=== PATIENT | male | born 1940 | race Caucasian/White ===

== ENCOUNTER 2023-01-12 23:16 | Emergency (ER) | payer MEDICARE, MEDICAID, SELFPAY ==
[2023-01-12 23:36] VITALS: BP 90/60; PULSE 63; RESP 19; O2SAT 94; BMI 34.4
[2023-01-12 23:47] VITALS: BP 86/66; PULSE 65; RESP 16; O2SAT 96
--- NOTE | 2023-01-12 23:49 | ECG_ITS ---
[facility] Test Date: 2023-01-12 Pat Name: Earnestine Nuno Department: Room: Gender: Male Senior Supplier Quality Engineer: : [id number] Requested By: Edwar Jones Order Number: [id number] Cabrera MD: Shashi Palomino M.D. Measurements Intervals [place] Rate: 60 P: 151 ME: 157 QRS: 232 QRSD: 98 T: 103 QT: 409 QTc: 411 Interpretive Statements SINUS RHYTHM ARM LEADS REVERSED [INVERTED P AND QRS IN I] No previous ECG available for comparison Electronically Signed On 01-13-2023 11:15:06 CDT by Shashi Palomino M.D. [id number] f
[2023-01-12] MEDS: sodium chloride 0.9% 1,000 ML 999 ML IV (23:50)
--- NOTE | 2023-01-12 23:52 | XRR_ITS ---
PROCEDURE INFORMATION: Exam: XR Chest Exam date and time: 01/12/2023 11:57 PM Age: 82 years old Clinical indication: Shortness of breath; Patient HX: EMS arrival from [facility] for hypoglycemia. Patient very lethargic and non verbal. Hypotensive on monitor. Audible rales with hypoxia. ; Additional info: Rhonchi, hypoxia TECHNIQUE: Imaging protocol: Radiologic exam of the chest. Views: 1 view. COMPARISON: No relevant prior studies available. FINDINGS: Lungs: Bibasilar atelectasis versus infiltrate. Pleural spaces: Unremarkable. No pleural effusion. No pneumothorax. Heart/Mediastinum: Cardiomegaly. Bones/joints: Unremarkable. XR/XR chest 1V portable [id number] IMPRESSION: 1. Bibasilar atelectasis versus infiltrate. 2. Cardiomegaly.
--- NOTE | 2023-01-12 23:53 | CTR_ITS ---
PROCEDURE INFORMATION: Exam: CT Head Without Contrast Exam date and time: 01/13/2023 12:07 AM Age: 82 years old Clinical indication: Altered mental status/memory loss; Patient HX: EMS arrival from [facility] for hypoglycemia. Patient very lethargic and non verbal. Hypotensive on monitor. ; Additional info: AMS TECHNIQUE: Imaging protocol: Computed tomography of the head without contrast. Radiation optimization: All CT scans at this facility use at least one of these dose optimization techniques: automated exposure control; mA and/or kV adjustment per patient size (includes targeted exams where dose is matched to clinical indication); or iterative reconstruction. REPORTING DATA: Count of CT and Cardiac NM exams in prior 12 months: This patient has received 0 known CTs and 0 known cardiac nuclear medicine studies in the 12 months prior to the current study. COMPARISON: No relevant prior studies available. RADIATION DOSE METRICS: Total DLP (mGy-cm): 1183.58 FINDINGS: Brain: Large amount diffuse white matter disease likely reflecting chronic microvascular ischemic changes. Cerebral ventricles: No ventriculomegaly. Paranasal sinuses: Paranasal sinus opacifications. Mastoid air cells: Visualized mastoid air cells are well aerated. Bones/joints: Unremarkable. No acute fracture. Soft tissues: Unremarkable. CT/CT head wo con* [id number] IMPRESSION: Negative for intracranial hemorrhage mass effect.
--- NOTE | 2023-01-12 23:54 | ED_ITS ---
Documented by User: ROSALIE Guevara 01/13/23 13:31 HPI - Recheck/Abnormal Lab/Rx General: Chief Complaint: Recheck/Abnormal Lab/Rx Stated Complaint: HYPOGLYCEMIA Time Seen by Provider: 01/12/23 23:50 History of Present Illness: 82-year-old male patient brought in by EMS for concerns of altered mental status. Patient was recognized to have a low blood sugar at the [facility]. Blood glucose was 75 EMS was dispatched and noted that blood glucose was 57 and he was given D10 in route to the ER. This brought patient's blood glucose up to 215 and EMS reported some increased response from patient. Patient does respond to verbal stimuli but is somnolent. Patient has a history of diabetes, dementia, dysphagia, hyperlipidemia, GERD, obesity. Review of Systems General: Reports: 10 or more systems reviewed and unremarkable except in HPI and below Const: Reports: fatigue Card: Denies: chest pain Resp: Denies: dyspnea GI: Denies: vomiting Neuro: Reports: weakness in extremities Physical Exam Const: COMMON NORMALS: alert HENMT: COMMON NORMALS: normocephalic HEAD & SCALP: normocephalic Neck/C-Spine: COMMON NORMALS: full ROM Resp: COMMON NORMALS: normal respiratory effort AUSCULTATION: rhonchi and diminished lung sounds Cardio: COMMON NORMALS: regular rate RATE: regular rate GI: COMMON NORMALS: Soft to palpation and non-tender PALPATION: Yes Soft to palpation Extremity: COMMON NORMALS: no pedal edema Neuro: SENSORIUM/ORIENTATION: Yes alert Skin: COMMON NORMALS: turgor normal GENERAL SKIN EXAM: turgor normal Course Vital Signs: Vital signs: Vital Signs Pulse Rate 90 01/13/23 12:39 Respiratory Rate 18 01/13/23 12:39 Blood Pressure 98/62 01/13/23 12:39 Pulse Oximetry 94 01/13/23 12:39 Oxygen Delivery Me thod Room Air 01/13/23 06:23 MDM - Recheck/Abnormal Lab/Rx Medical Decision Making 82-year-old male patient was brought in by EMS for concerns of hypoglycemia and altered mental status. Patient was given dextrose, D10 per EMS to bring up blood glucose to above 200. Patient was reported to be more attentive after administration. On exam patient seems somnolent. Patient does answer questions but does not open eyes. Patient has rhonchorous lung sounds with diminished air movement in the bases. Abdomen is rotund. No edema is noted in the extremities. Differential diagnosis includes sepsis, hypoglycemia, aspirated pneumonia, stroke syndrome, ACS. Lab Data 01/12/23 23:30 01/12/23 23:30 Radiology Impressions Chest X-Ray 01/12/23 23:52 IMPRESSION: 1. Bibasilar atelectasis versus infiltrate. 2. Cardiomegaly. Head CT 01/12/23 23:53 IMPRESSION: Negative for intracranial hemorrhage mass effect. Abdomen/Pelvis CT 01/13/23 02:14 IMPRESSION: 1. No hydronephrosis or calculus. 2. Mildly distended urinary bladder with no obvious bladder wall thickening. 3. Questionable trace layering density in the posterior bladder, possibly debris and/or clot. Can not exclude volume averaging artifact, as the finding is very subtle. 4. Normal prostate gland. 5. Rounded consolidation in the posterior right lower lobe, seen on the superior most image, measuring at least 4 cm. Considerations include pneumonia, rounded atelectasis, and neoplasm. 6. Cholelithiasis. No evidence of acute cholecystitis or biliary dilatation. 7. Very minor colonic diverticulosis without evidence of diverticulitis. 8. Small sliding hiatal hernia. 9. Small bilateral fat containing inguinal hernias. 10. Age indeterminate mild wedge compression fracture of T11. Suspect that this is chronic given the bridging osteophytes, but no prior studies are available for comparison. ADDENDUM: 01/13/23 0322 ADDENDUM: As per Fleischner Society guidelines for follow-up and management of pulmonary nodules greater than 8 mm: Recommend initial follow-up chest CT at 3 months. Consider contrast enhanced chest CT, PET scan and/or biopsy as clinically warranted. References: Bal H, et al. Guidelines for Management of Incidental Pulmonary Nodules Detected on CT Images: From the Fleischner Society 2017. Radiology. 2017;284(1):228-243. Laboratory Results WBC 5.96 10^3/uL (3.29-11.43) 01/12/23 23:30 RBC 6.12 10^6/uL (3.85-5.65) H 01/12/23 23:30 Hgb 16.00 g/dL (11.27-16.99) 01/12/23 23:30 Hct 50.6 % (37-53) 01/12/23 23: MCV 82.7 fl (82-101) 01/12/23 23: MCH 26.1 pg (27-33) L 01/12/23 23: MCHC 31.6 g/dL (30-55) 01/12/23 23: RDW 17.8 % (12.1-15.1) H 01/12/23 23: Plt Count 217 10^3/cmm (157-399) 01/12/23 23: MPV 9.5 fL (7.4-10.4) 01/12/23 23: Neut % (Auto) 57.1 % 01/12/23 23: Lymph % (Auto) 30.0 % 01/12/23 23: Forrest % (Auto) 7.9 % 01/12/23: Eos % (Auto) 4.0 % 01/12/23 23: Baso % (Auto) 0.5 % 01/12/23: Neut # (Auto) 3.40 10^3/uL (1.8-7.7) 01/12/23 23: Lymph # (Auto) 1.8 10^3/uL (0.8-4.8) 01/12/23 23: Forrest # (Auto) 0.5 10^3/uL (0.2-0.9) 01/12/23 23:30 Eos # (Auto) 0.2 10^3/uL (0.0-0.8) 01/12/23 23: Baso # (Auto) 0.0 10^3/uL (0.0-0.1) 01/12/23 23: Nucleated RBC % (auto) 0 % 01/12/23: Nucleated RBCs # 0.0 /100WBC 01/12/23 23: ESR 29 mm/hr (0-10) H 01/12/23 23:30 Sodium 143 mmol/L (136-145) 01/12/23 23:30 Potassium 3.8 mmol/L (3.5-5.1) 01/12/23 23: Chloride 108 mmol/L (98-107) H 01/12/23 23:30 Carbon Dioxide 25 mmol/L (22-29) 01/12/23 23:30 Anion Gap 13.8 (5-19) 01/12/23 23:30 BUN 22 mg/dL (8-23) 01/12/23 23:30 Creatinine 1.5 mg/dL (0.7-1.2) H 01/12/23 23:30 GFR Calculation Not Reportable 01/12/23 23:30 Glucose 49 mg/dL (65-115) L 01/12/23 23:30 POC Glucose 58 mg/dL (70-110) L 01/13/23 12:10 Calculated Osmolality 297 mOsm/kg (285-295) H 01/12/23 23:30 Lactic Acid 1.4 mmol/L (0.5-2.2) 01/13/23 00:36 Calcium 9.1 mg/dL (8.5-10.5) 01/12/23 23:30 Total Bilirubin 0.4 mg/dL (0.15-1.2) 01/12/23 23:30 AST 20 U/L (0-40) 01/12/23 23:30 ALT 7 U/L (0-41) 01/12/23 23:30 Alkaline Phosphatase 31 U/L (40-130) L 01/12/23 23:30 Troponin T Baseline 21 ng/L (0-15) H 01/13/23 00:00 Troponin T 120 Minute 17.57 ng/L (0-15) H 01/13/23 01:54 Delta Troponin T -3.43 ABS# (0-10) L 01/13/23 01:54 C-Reactive Protein 9.3 mg/L (0.0-4.9) H 01/12/23 23:30 Total Protein 6.8 g/dL (6.6-8.7) 01/12/23 23:30 Albumin 3.5 g/dL (3.5-5.2) 01/12/23 23:30 Globulin 3.3 g/dL (1.3-4.6) 01/12/23 23:30 Urine Color Yellow (Yellow) 01/13/23 00:42 Urine Appearance Cloudy (CLEAR) A 01/13/23 00:42 Urine pH 5 (5-7) 01/13/23 00:42 Ur Specific [place] 1.015 (1.005-1.030) 01/13/23 00: Urine Protein Trace (Negative) 01/13/23: Urine Glucose (UA) 1+ (Normal) H 01/13/23 00: Urine Ketones Negative (Negative) 01/13/23 00: Urine Blood 2+ (Negative) H 01/13/23 00: Urine Nitrate Negative (Negative) 01/13/23: Urine Bilirubin Neg (Negative) 01/13/23: Urine Urobilinogen Neg mg/dL (Negative) 01/13/23 00: Ur Leukocyte Esterase 2+ (Negative) H 01/13/23 00: Urine RBC Too numerous to cnt /hpf (0-2) H 01/13/23: Urine WBC Too numerous to cnt /hpf (0-5) H 01/13/23 00: Ur Squamous Epith Cells Rare /hpf (0-5) 01/13/23 00: Amorphous Sediment Not Reportable 01/13/23 00: Urine Bacteria Trace /hpf (NONE) 01/13/23 00:42 Nasal Influ A H1 2009 PCR Not detected (NOT DETECT) 01/13/23 00:02 Adenovirus (PCR) Not detected (NOT DETECT) 01/13/23 00:02 C. pneumoniae DNA (PCR) Not detected (NOT DETECT) 01/13/23 00:02 Coronavirus 229E (PCR) Not detected (NOT DETECT) 01/13/23 00:02 Human Metapneumovir PCR Not detected (NOT DETECT) 01/13/23 00:02 Influenza A (H1) PCR Not detected (NOT DETECT) 01/13/23 00:02 Influenza A (H3) PCR Not detected (NOT DETECT) 01/13/23 00:02 Influenza Type A (PCR) Not detected (NOT DETECT) 01/13/23 00:02 Influenza Type B (PCR) Not detected (NOT DETECT) 01/13/23 00:02 M. pneumoniae (PCR) Not detected (NOT DETECT) 01/13/23 00:02 Parainfluenza 1 (PCR) Not detected (NOT DETECT) 01/13/23 00:02 Parainfluenza 2 (PCR) Not detected (NOT DETECT) 01/13/23 00:02 Parainfluenza 3 (PCR) Not detected (NOT DETECT) 01/13/23 00:02 Parainfluenza 4 (PCR) Not detected (NOT DETECT) 01/13/23 00:02 RSV Type A (PCR) Not detected (NOT DETECT) 01/13/23 00:02 RSV Type B (PCR) Not detected (NOT DETECT) 01/13/23 00:02 Entero/Rhino (PCR) Not detected (NOT DETECT) 01/13/23 00:02 SARS-CoV-2 (PCR) Not detected (NOT DETECT) 01/13/23 00:02 Discharge Plan Discharge Patient Disposition: Home Clinical Impression: Acute UTI, Hypoglycemia Condition: Stable Prescriptions: New cefdinir 300 mg capsule 300 mg PO BID Qty: 14 0RF Discharge Orders: Discharge ED (Routine); Ordered 01/13/23 Ordered By: Thomas Rockwell Patient Instructions: Hypoglycemia in a Person with Diabetes (ED), Urinary Tract Infection in Older Adults (ED) Activity Restrictions/Additional Instructions: Return for any problems. Monitor for fever. Watch blood sugars very closely. Coding Level of Care Code ED Engineering Faculty for Chg Fwd Documented by User: Thomas Rockwell DO 01/13/23 04:52 HPI - Recheck/Abnormal Lab/Rx General: Chief Complaint: Recheck/Abnormal Lab/Rx Stated Complaint: HYPOGLYCEMIA Time Seen by Provider: 01/12/23 23:50 Course Vital Signs: Vital signs: Vital Signs Pulse Rate 90 01/13/23 12:39 Respiratory Rate 18 01/13/23 12:39 Blood Pressure 98/62 01/13/23 12:39 Pulse Oximetry 94 01/13/23 12:39 Oxygen Delivery Me thod Room Air 01/13/23 06:23 MDM - Recheck/Abnormal Lab/Rx Medical Decision Making 82-year-old male patient was brought in by EMS for concerns of hypoglycemia and altered mental status. Patient was given dextrose, D10 per EMS to bring up blood glucose to above 200. Patient was reported to be more attentive after administration. On exam patient seems somnolent. Patient does answer questions but does not open eyes. Patient has rhonchorous lung sounds with diminished air movement in the bases. Abdomen is rotund. No edema is noted in the extremities. Differential diagnosis includes sepsis, hypoglycemia, aspirated pneumonia, stroke syndrome, ACS. Patient was originally seen by ROSALIE Romero. I agree with his history, evaluation, and initial treatment. The patient has a creatinine of 1.5. Blood sugar was 49 here on arrival, but increase appropriately with administration of more D10. He is eating now. Chest x-ray shows bibasilar atelectasis. Head CT is negative. The patient has a urinary tract infection with too many whites and reds to count. CT rules out hydronephrosis or calculus. There is a rounded consolidation in the posterior right lower lobe there is a possible pneumonia. He will be covered for both. Frequent sugar checks. As he is otherwise stable, he will be allowed discharge. Return for any worsening symptoms. Lab Data 01/12/23 23:30 01/12/23 23:30 Radiology Impressions Chest X-Ray 01/12/23 23:52 IMPRESSION: 1. Bibasilar atelectasis versus infiltrate. 2. Cardiomegaly. Head CT 01/12/23 23:53 IMPRESSION: Negative for intracranial hemorrhage mass effect. Abdomen/Pelvis CT 01/13/23 02:14 IMPRESSION: 1. No hydronephrosis or calculus. 2. Mildly distended urinary bladder with no obvious bladder wall thickening. 3. Questionable trace layering density in the posterior bladder, possibly debris and/or clot. Can not exclude volume averaging artifact, as the finding is very subtle. 4. Normal prostate gland. 5. Rounded consolidation in the posterior right lower lobe, seen on the superior most image, measuring at least 4 cm. Considerations include pneumonia, rounded atelectasis, and neoplasm. 6. Cholelithiasis. No evidence of acute cholecystitis or biliary dilatation. 7. Very minor colonic diverticulosis without evidence of diverticulitis. 8. Small sliding hiatal hernia. 9. Small bilateral fat containing inguinal hernias. 10. Age indeterminate mild wedge compression fracture of T11. Suspect that this is chronic given the bridging osteophytes, but no prior studies are available for comparison. ADDENDUM: 01/13/23 5702 ADDENDUM: As per Fleischner Society guidelines for follow-up and management of pulmonary nodules greater than 8 mm: Recommend initial follow-up chest CT at 3 months. Consider contrast enhanced chest CT, PET scan and/or biopsy as clinically warranted. References: Bal Miller et al. Guidelines for Management of Incidental Pulmonary Nodules Detected on CT Images: From the Fleischner Society 2017. Radiology. 2017;284(1):228-243. Laboratory Results WBC 5.96 10^3/uL (3.29-11.43) 01/12/23 23:30 RBC 6.12 10^6/uL (3.85-5.65) H 01/12/23 23:30 Hgb 16.00 g/dL (11.27-16.99) 01/12/23 23: Hct 50.6 % (37-53) 01/12/23 23:30 MCV 82.7 fl (82-101) 01/12/23 23:30 MCH 26.1 pg (27-33) L 01/12/23 23: MCHC 31.6 g/dL (30-55) 01/12/23 23:30 RDW 17.8 % (12.1-15.1) H 01/12/23 23:30 Plt Count 217 10^3/cmm (157-399) 01/12/23 23:30 MPV 9.5 fL (7.4-10.4) 01/12/23 23:30 Neut % (Auto) 57.1 % 01/12/23 23:30 Lymph % (Auto) 30.0 % 01/12/23 23:30 Forrest % (Auto) 7.9 % 01/12/23 23:30 Eos % (Auto) 4.0 % 01/12/23 23:30 Baso % (Auto) 0.5 % 01/12/23 23:30 Neut # (Auto) 3.40 10^3/uL (1.8-7.7) 01/12/23 23:30 Lymph # (Auto) 1.8 10^3/uL (0.8-4.8) 01/12/23 23:30 Forrest # (Auto) 0.5 10^3/uL (0.2-0.9) 01/12/23 23:30 Eos # (Auto) 0.2 10^3/uL (0.0-0.8) 01/12/23 23:30 Baso # (Auto) 0.0 10^3/uL (0.0-0.1) 01/12/23 23:30 Nucleated RBC % (auto) 0 % 01/12/23 23:30 Nucleated RBCs # 0.0 /100WBC 01/12/23 23:30 ESR 29 mm/hr (0-10) H 01/12/23 23:30 Sodium 143 mmol/L (136-145) 01/12/23 23:30 Potassium 3.8 mmol/L (3.5-5.1) 01/12/23 23:30 Chloride 108 mmol/L (98-107) H 01/12/23 23:30 Carbon Dioxide 25 mmol/L (22-29) 01/12/23 23:30 Anion Gap 13.8 (5-19) 01/12/23 23:30 BUN 22 mg/dL (8-23) 01/12/23 23:30 Creatinine 1.5 mg/dL (0.7-1.2) H 01/12/23 23:30 GFR Calculation Not Reportable 01/12/23 23:30 Glucose 49 mg/dL (65-115) L 01/12/23 23:30 POC Glucose 58 mg/dL (70-110) L 01/13/23 12:10 Calculated Osmolality 297 mOsm/kg (285-295) H 01/12/23 23:30 Lactic Acid 1.4 mmol/L (0.5-2.2) 01/13/23 00:36 Calcium 9.1 mg/dL (8.5-10.5) 01/12/23 23:30 Total Bilirubin 0.4 mg/dL (0.15-1.2) 01/12/23 23:30 AST 20 U/L (0-40) 01/12/23 23:30 ALT 7 U/L (0-41) 01/12/23 23:30 Alkaline Phosphatase 31 U/L (40-130) L 01/12/23 23:30 Troponin T Baseline 21 ng/L (0-15) H 01/13/23 00:00 Troponin T 120 Minute 17.57 ng/L (0-15) H 01/13/23 01:54 Delta Troponin T -3.43 ABS# (0-10) L 01/13/23 01:54 C-Reactive Protein 9.3 mg/L (0.0-4.9) H 01/12/23 23:30 Total Protein 6.8 g/dL (6.6-8.7) 01/12/23 23:30 Albumin 3.5 g/dL (3.5-5.2) 01/12/23 23: Globulin 3.3 g/dL (1.3-4.6) 01/12/23 23:30 Urine Color Yellow (Yellow) 01/13/23 00:42 Urine Appearance Cloudy (CLEAR) A 01/13/23 00:42 Urine pH 5 (5-7) 01/13/23 00:42 Ur Specific [place] 1.015 (1.005-1.030) 01/13/23 00:42 Urine Protein Trace (Negative) 01/13/23 00:42 Urine Glucose (UA) 1+ (Normal) H 01/13/23 00: Urine Ketones Negative (Negative) 01/13/23 00: Urine Blood 2+ (Negative) H 01/13/23 00:42 Urine Nitrate Negative (Negative) 01/13/23 00:42 Urine Bilirubin Neg (Negative) 01/13/23 00:42 Urine Urobilinogen Neg mg/dL (Negative) 01/13/23 00:42 Ur Leukocyte Esterase 2+ (Negative) H 01/13/23 00:42 Urine RBC Too numerous to cnt /hpf (0-2) H 01/13/23 00:42 Urine WBC Too numerous to cnt /hpf (0-5) H 01/13/23 00:42 Ur Squamous Epith Cells Rare /hpf (0-5) 01/13/23 00:42 Amorphous Sediment Not Reportable 01/13/23 00:42 Urine Bacteria Trace /hpf (NONE) 01/13/23 00:42 Nasal Influ A H1 2009 PCR Not detected (NOT DETECT) 01/13/23 00:02 Adenovirus (PCR) Not detected (NOT DETECT) 01/13/23 00: C. pneumoniae DNA (PCR) Not detected (NOT DETECT) 01/13/23 00: Coronavirus 229E (PCR) Not detected (NOT DETECT) 01/13/23 00: Human Metapneumovir PCR Not detected (NOT DETECT) 01/13/23 00:02 Influenza A (H1) PCR Not detected (NOT DETECT) 01/13/23 00:02 Influenza A (H3) PCR Not detected (NOT DETECT) 01/13/23 00:02 Influenza Type A (PCR) Not detected (NOT DETECT) 01/13/23 00:02 Influenza Type B (PCR) Not detected (NOT DETECT) 01/13/23 00:02 M. pneumoniae (PCR) Not detected (NOT DETECT) 01/13/23 00:02 Parainfluenza 1 (PCR) Not detected (NOT DETECT) 01/13/23 00:02 Parainfluenza 2 (PCR) Not detected (NOT DETECT) 01/13/23 00:02 Parainfluenza 3 (PCR) Not detected (NOT DETECT) 01/13/23 00:02 Parainfluenza 4 (PCR) Not detected (NOT DETECT) 01/13/23 00:02 RSV Type A (PCR) Not detected (NOT DETECT) 01/13/23 00:02 RSV Type B (PCR) Not detected (NOT DETECT) 01/13/23 00:02 Entero/Rhino (PCR) Not detected (NOT DETECT) 01/13/23 00:02 SARS-CoV-2 (PCR) Not detected (NOT DETECT) 01/13/23 00:02 All radiology interpretation(s) finalized by discharge Discharge Plan Discharge Patient Disposition: Home Clinical Impression: Acute UTI, Hypoglycemia Condition: Stable Prescriptions: New cefdinir 300 mg capsule 300 mg PO BID Qty: 14 0RF Discharge Orders: Discharge ED (Routine); Ordered 01/13/23 Ordered By: Thomas Rockwell Patient Instructions: Hypoglycemia in a Person with Diabetes (ED), Urinary Tract Infection in Older Adults (ED) Activity Restrictions/Additional Instructions: Return for any problems. Monitor for fever. Watch blood sugars very closely. Coding Level of Care Code ED Engineering Faculty for Marva Boo
[2023-01-12 23:58] LABS: Basophils % 0.5 %; Eosinophils # 0.2 10^3/uL (0.0-0.8); Hematocrit 50.6 % (37-53); Lymphocytes # 1.8 10^3/uL (0.8-4.8); Mean Corpuscular HGB Conc 31.6 g/dL (30-55); Mean Corpuscular Hemoglobin 26.1 pg (27-33); Mean Corpuscular Volume 82.7 fl (82-101); Mean Platelet Volume 9.5 fL (7.4-10.4); Monocytes # 0.5 10^3/uL (0.2-0.9); Monocytes % 7.9 %; Neutrophils % 57.1 %; Nucleated Red Blood Cells % 0 %; Platelet Count 217 10^3/cmm (157-399); Red Blood Count 6.12 10^6/uL (3.85-5.65); Red Cell Distribution Width 17.8 % (12.1-15.1); White Blood Count 5.96 10^3/uL (3.29-11.43)
[2023-01-13] VITALS (13 sets, daily range): BP systolic 98–140; BP diastolic 53–85; PULSE 61–90; RESP 18–22; O2SAT 93–97
[2023-01-13 00:03] LABS: Glucose Point of Care 108 mg/dL (70-110)
[2023-01-13 00:10] LABS: Erythrocyte Sedimentation Rate 29 mm/hr (0-10)
[2023-01-13 00:25] LABS: Troponin(5th) Baseline 21 ng/L (0-15)
[2023-01-13 00:27] LABS: C Reactive Protein 9.3 mg/L (0.0-4.9)
[2023-01-13 00:33] LABS: Alanine Aminotransferase 7 U/L (0-41); Albumin Level 3.5 g/dL (3.5-5.2); Alkaline Phosphatase 31 U/L (40-130); Anion Gap 13.8 (5-19); Aspartate Amino Transferase 20 U/L (0-40); Blood Urea Nitrogen 22 mg/dL (8-23); Calcium 9.1 mg/dL (8.5-10.5); Carbon Dioxide 25 mmol/L (22-29); Chloride 108 mmol/L (98-107); Globulin 3.3 g/dL (1.3-4.6); Glucose 49 mg/dL (65-115); Osmolality Calculated 297 mOsm/kg (285-295); Potassium 3.8 mmol/L (3.5-5.1); Sodium 143 mmol/L (136-145); Total Bilirubin 0.4 mg/dL (0.15-1.2); Total Protein 6.8 g/dL (6.6-8.7)
[2023-01-13 00:50] LABS: Glucose Point of Care 94 mg/dL (70-110)
[2023-01-13] MEDS: dextrose 10% 250 ML IV (00:57)
[2023-01-13 01:02] LABS: Lactic Sepsis W/Reflex 1.4 mmol/L (0.5-2.2)
[2023-01-13 01:11] LABS: Add Urine Microscopic? YES; Bacteria Urine TRACE /hpf; Bilirubin Urine Neg (Negative); Blood Urine 2+ (Negative); Glucose Urine UA 1+ (Normal); Ketones Urine Negative (Negative); Leukocyte Esterase Urine 2+ (Negative); Nitrate Urine Negative (Negative); Protein Urine Trace (Negative); RBC Urine TOO NUMEROUS TO CNT /hpf (0-2); Specific Gravity, Urine 1.015 (1.005-1.030); Squamous Epithelial Cell Urine RARE /hpf (0-5); Urine Appearance Cloudy (CLEAR); Urine Color Yellow (Yellow); Urobilinogen Urine Neg (Negative); WBC Urine TOO NUMEROUS TO CNT /hpf (0-5); pH Urine 5 (5-7)
[2023-01-13 01:12] LABS: Add Urine Culture? Yes
[2023-01-13] MEDS: cefTRIAXone 1,000 MG in sodium chloride 0.9% (plus) 50 ML 100 MG IV (01:51)
[2023-01-13 01:52] LABS: Glucose Point of Care 139 mg/dL (70-110)
[2023-01-13 01:55] LABS: Adenovirus Not Detected (NOT DETECT); Chlamydia Pneumoniae Not Detected (NOT DETECT); Coronavirus 229E,HKU1,NL63,OC4 Not Detected (NOT DETECT); Human Metapneumovirus Not Detected (NOT DETECT); Human Rhinovirus/Enterovirus Not Detected (NOT DETECT); Influenza A Not Detected (NOT DETECT); Influenza A H1 Not Detected (NOT DETECT); Influenza A H1-2009 Not Detected (NOT DETECT); Influenza A H3 Not Detected (NOT DETECT); Influenza B Not Detected (NOT DETECT); Mycoplasma Pneumoniae Not Detected (NOT DETECT); Parainfluenza Virus Type 1 Not Detected (NOT DETECT); Parainfluenza Virus Type 2 Not Detected (NOT DETECT); Parainfluenza Virus Type 3 Not Detected (NOT DETECT); Parainfluenza Virus Type 4 Not Detected (NOT DETECT); Respiratory Syncytial Virus A Not Detected (NOT DETECT); Respiratory Syncytial Virus B Not Detected (NOT DETECT); SARS-COV-2 Not Detected (NOT DETECT)
--- NOTE | 2023-01-13 02:14 | CTR_ITS ---
PROCEDURE INFORMATION: Exam: CT Abdomen And Pelvis Without Contrast Exam date and time: 01/13/2023 2:22 AM Age: 82 years old Clinical indication: Patient HX: Hematuria. Patient non verbal. ; Additional info: Hematuria, AMS TECHNIQUE: Imaging protocol: Computed tomography of the abdomen and pelvis without contrast. Radiation optimization: All CT scans at this facility use at least one of these dose optimization techniques: automated exposure control; mA and/or kV adjustment per patient size (includes targeted exams where dose is matched to clinical indication); or iterative reconstruction. REPORTING DATA: Count of CT and Cardiac NM exams in prior 12 months: This patient has received 0 known CTs and 0 known cardiac nuclear medicine studies in the 12 months prior to the current study. COMPARISON: CR (CHEST, ) 01/12/2023 11:57 PM RADIATION DOSE METRICS: Total DLP (mGy-cm): 1224.37 FINDINGS: Lungs: Rounded consolidation in the posterior right lower lobe, seen on the superior most image, measuring at least 4 cm. Diaphragm: Small sliding hiatal hernia. Liver: Normal liver. Gallbladder and bile ducts: Cholelithiasis. No evidence of acute cholecystitis or biliary dilatation. Pancreas: Normal pancreas. No ductal dilation. Spleen: Normal spleen. No splenomegaly. Adrenal glands: Adrenal glands are normal. Kidneys and ureters: Kidneys appear grossly unremarkable on this noncontrast exam. No hydronephrosis or calculus. Stomach and bowel: Very minor colonic diverticulosis without evidence of diverticulitis. No bowel wall thickening. No bowel obstruction. Appendix: Normal appendix. Intraperitoneal space: No free fluid or free air. Vasculature: No abdominal aortic aneurysm. Lymph nodes: No adenopathy. Urinary bladder: Mildly distended urinary bladder with no obvious bladder wall thickening. Questionable trace layering density in the posterior bladder, possibly debris and/or clot. Can not exclude volume averaging artifact, as the finding is very subtle. Reproductive: Normal prostate gland. Bones/joints: Bones are diffusely demineralized. Age indeterminate mild wedge compression fracture of T11. No suspicious osseous lesion. Soft tissues: Small bilateral fat containing inguinal hernias. CT/CT kidney stone [id number] IMPRESSION: 1. No hydronephrosis or calculus. 2. Mildly distended urinary bladder with no obvious bladder wall thickening. 3. Questionable trace layering density in the posterior bladder, possibly debris and/or clot. Can not exclude volume averaging artifact, as the finding is very subtle. 4. Normal prostate gland. 5. Rounded consolidation in the posterior right lower lobe, seen on the superior most image, measuring at least 4 cm. Considerations include pneumonia, rounded atelectasis, and neoplasm. 6. Cholelithiasis. No evidence of acute cholecystitis or biliary dilatation. 7. Very minor colonic diverticulosis without evidence of diverticulitis. 8. Small sliding hiatal hernia. 9. Small bilateral fat containing inguinal hernias. 10. Age indeterminate mild wedge compression fracture of T11. Suspect that this is chronic given the bridging osteophytes, but no prior studies are available for comparison.
[2023-01-13 02:20] LABS: Troponin 5 2HR 17.57 ng/L (0-15)
[2023-01-13 02:21] LABS: Troponin 5 2HR Delta -3.43 ABS# (0-10)
[2023-01-13 12:13] LABS: Glucose Point of Care 58 mg/dL (70-110)
== END 2023-01-13 12:41 | disposition home or self-care (01) ==
PROVIDERS: Nurse Practitioner Family; Emergency Provider Emergency Medicine
DX: N39.0 Urinary tract infection, site not specified (principal); E16.2 Hypoglycemia, unspecified; Z11.52 Encounter for screening for COVID-19
CPT/HCPCS: 36415; 36416; 70450; 71045; 74176; 80053; 81001; 82962; 83605; 84484; 85025; 85651; 86140; 87040; 87086; 87486; 87581; 87633; 93005; 96365; 99285; J0696; J7030; J7799